=== PATIENT | female | born 1965 | race Two or more races ===

== ENCOUNTER 2016-09-03 06:41 | Day surgery (SDC) | payer OTHER ==
[2016-09-02 10:25] VITALS: BMI 29.9
[2016-09-03] MEDS ORDERED: LIDOCAINE HCL 1%, 10 MG/ML (20ML VIAL) ONE (07:21)
[2016-09-03] MEDS ORDERED: PROPOFOL 20 ML ONE (07:43)
[2016-09-03] MEDS ORDERED: MIDAZOLAM HCL 2 MG/2 ML SINGLE DOSE VIAL ONE (07:44)
[2016-09-03] MEDS ORDERED: SUCCINYLCHOLINE CHLORIDE 200 MG/10 ML VIAL ONE (07:44)
[2016-09-03] MEDS ORDERED: LIDOCAINE 1%/EPI 1:100000 (50 ML MULTI DOSE VIAL) ONE (08:00)
--- NOTE | 2016-09-03 08:11 | HP ---
History & Physical Update - History History: No Change - Physical Physical: No Change - Assessment Assessment: No Change - Plan Plan: No Change
[2016-09-03] MEDS ORDERED: CLINDAMYCIN PHOSPHATE 600 MG/4 ML VIAL ONE (08:22)
[2016-09-03] MEDS ORDERED: CLINDAMYCIN PHOSPHATE 900 MG/6 ML VIAL IVPB ONE (08:26)
[2016-09-03] MEDS ORDERED: DEXAMETHASONE SOD PHOSPHATE 4 MG/1 ML VIAL ONE (08:27)
[2016-09-03] MEDS ORDERED: KETOROLAC TROMETHAMINE 30 MG/1 ML VIAL ONE (08:27)
[2016-09-03] MEDS ORDERED: LIDOCAINE 1%/EPI 1:100000 (20 ML MULTI DOSE VIAL) INF ONE (08:35)
--- NOTE | 2016-09-03 09:06 | OP ---
Operative Note - Note: Operative Date: 09/03/16 Pre-Operative Diagnosis: FOREIGN BODY, LEFT AXILLA Operation: REMOVAL OF FOREIGN BODY, LEFT AXILLA Post-Operative Diagnosis: Same as Pre-op Surgeon: Neal Polanco Anesthesia: General (LMA) Specimens Removed: FOERIGN BODY Estimated Blood Loss (mls): 1 Operative Report Dictated: Yes
[2016-09-03] MEDS ORDERED: ONDANSETRON 4 MG/2 ML VIAL IVPUSH PRN (09:12)
[2016-09-03] MEDS ORDERED: oxyCODONE HCL 5 MG TABLET PO PRN (09:12)
[2016-09-03] MEDS ORDERED: LACTATED RINGERS SOLUTION 1,000 ML IV SCH (09:15)
[2016-09-03 09:37] VITALS: TEMP 98.5
[2016-09-03 11:26] VITALS: BP 100/53; PULSE 80
--- NOTE | 2016-09-04 08:59 | OP ---
DATE OF OPERATION: 09/03/2016 PROCEDURE: Removal of foreign body of the left axilla. PREOPERATIVE DIAGNOSIS: Foreign body of the left axilla. POSTOPERATIVE DIAGNOSIS: Foreign body of the left axilla. SURGEON: Neal Polanco MD ANESTHESIA: General by laryngeal mask airway. FINDINGS ON PROCEDURE: This is a 51-year-old female who was referred for removal of a 5 x 1 cm tubular foreign body of the left axilla, which was implanted several years ago. So, patient was scheduled for removal of the foreign body, and consent was obtained after discussing the risks, benefits, and alternatives of the procedure. DESCRIPTION OF PROCEDURE: Patient was brought to the operating room and placed in supine position. General anesthesia by laryngeal mask airway was administered. A shoulder roll was then placed on the left side. The left axilla was prepped and draped in the usual sterile fashion. Using lidocaine 1% with epinephrine, local anesthesia was administered to the proposed incision site. A 3 x 1 cm elliptical incision was made over the insertion site of the axilla of the foreign body using scalpel blade No. 15. The dissection was carried down to subcutaneous tissue. Further dissection using Bovie cautery was done until the foreign body together with the ellipse of skin was completely excised. Hemostasis was achieved using Bovie cautery. The wound was closed with interrupted Polysorb 3-0 suture for the dermis and continuous Biosyn 4-0 suture for the subcuticular layer. The wound closure was reinforced with Steri-Strips and covered with pressure dressing. The patient was successfully extubated and transferred to the post-anesthesia care unit in satisfactory condition. ESTIMATED BLOOD LOSS: About 1 mL. WOUND CLASS: Clean. The patient received 900 mg of clindamycin prior to the start of the procedure. Shira [id number]
--- NOTE | 2016-09-04 15:07 | PATH ---
Surgical Pathology Report Patient Name: TONG TODD [facility]. Rec. #: [id number] /Age/Gender: 1965 (Age: 51) / F Account: [id number] Location: [facility] Taken: 09/03/2016 Received: 09/03/2016 Reported: 09/04/2016 Physicians: Neal Polanco M.D. Specimen(s) Received FOREIGN BODY LEFT AXILLA Clinical History Foreign body left axilla Final Diagnosis FOREIGN BODY, LEFT AXILLA, EXCISION: PARTIALLY CALCIFIED FOREIGN MATERIAL WITH SURROUNDING FIBROUS CAPSULE WITH ACTIVE AND CHRONIC INFLAMMATION. Electronically Signed Gerson Benitez M.D. Gross Description Received in formalin labeled "foreign body left axilla" is a 4.5 x 2.0 x 1.0 cm irregular portion of soft tissue which is partially surfaced by a 1.8 x 0.4 cm isbell, elliptical, unremarkable portion of skin. Sectioning reveals a isbell, rubbery, rolled up foreign material surrounded by a calcified capsule. [employer] sections are submitted in one cassette, following decalcification. /09/03/201609/03/2016
== END 2016-09-03 11:15 | disposition home or self-care (01) ==
LOC: JASU-SURG 06:41
PROVIDERS: ATTEND Surgery
PROC: 0JCF0ZZ Extirpation of Matter from Left Upper Arm Subcutaneous Tissue and Fascia, Open Approach (ICD-10-PCS; principal; 2016-09-03 09:30)
DX: M79.5 Residual foreign body in soft tissue (principal)
CPT/HCPCS: 84703; 88304-TC; 94760

== ENCOUNTER 2024-10-01 14:56 | Emergency (ER) | payer OTHER ==
[2024-10-01 15:06] VITALS: BP 101/46; PULSE 90; RESP 20; TEMP 98.2; BMI 30.8
[2024-10-01] MEDS: SODIUM CHLORIDE 0.9% 500 ML INFUS.BAG IV ONE (16:14)
[2024-10-01] MEDS: ACETAMINOPHEN 1000 MG/100 ML BAG IVPB ONE (16:14)
[2024-10-01] MEDS ORDERED: ACETAMINOPHEN INJECTION 100 ML ONE (16:15)
[2024-10-01 16:16] LABS: ABSOLUTE IMMATURE GRANULOCYTES 0.03 x10^3/uL (0.0-0.031); BASOPHILS # 0.03 x10^3/uL (0.01-0.08); EOSINOPHIL % 1.5 % (0.7-5.8); HEMATOCRIT 38.4 % (34.1-44.9); HEMOGLOBIN 12.4 g/dL (11.2-15.7); MCHC 32.3 g/dl (32.2-35.5); MEAN CELL VOLUME 93.7 fl (79.4-94.8); MONOCYTE # 0.51 x10^3/uL (0.24-0.86); MONOCYTE % 7.6 % (4.7-12.5); PLATELET COUNT 329 x10^3/uL (182-369); RDW 13.7 % (12.3-16.6)
[2024-10-01 16:41] LABS: POTASSIUM 4.6 mmol/L (3.5-5.1)
[2024-10-01 16:43] LABS: CALCIUM 9.8 mg/dL (8.5-10.1)
[2024-10-01 16:44] LABS: ALBUMIN 3.5 g/dl (3.4-5.0); BLOOD UREA NITROGEN 18.9 mg/dL (7-18)
[2024-10-01 16:47] LABS: CREATININE 0.7 mg/dL (0.55-1.3)
[2024-10-01 16:48] LABS: BILIRUBIN,TOTAL 0.7 mg/dL (0.2-1); TOT PROT 6.9 g/dl (6.4-8.2)
[2024-10-01 17:06] LABS: URINE APPEARANCE CLEAR; URINE BILIRUBIN NEGATIVE (NEGATIVE); URINE COLOR YELLOW; URINE GLUCOSE (UA) NEGATIVE (NEGATIVE); URINE KETONE NEGATIVE (NEGATIVE); URINE LEUK ESTERASE NEGATIVE (NEGATIVE); URINE NITRITE NEGATIVE (NEGATIVE); URINE PROTEIN NEGATIVE (NEGATIVE); URINE UROBILINOGEN 0.2 mg/dL (0.2-1.0)
[2024-10-01 18:53] LABS: ACTIVATED PTT 31.7 SECONDS (25.2-36.5); INR 1.05 (0.83-1.09); PROTHROMBIN TIME (PATIENT) 11.5 SEC (9.7-13.0)
== END 2024-10-01 18:38 | disposition home or self-care (01) ==
LOC: JER 14:56
PROC: 3E033NZ Introduction of Analgesics, Hypnotics, Sedatives into Peripheral Vein, Percutaneous Approach (ICD-10-PCS; principal; 2024-10-01)
DX: K57.32 Diverticulitis of large intestine without perforation or abscess without bleeding (principal); R10.32 Left lower quadrant pain
CPT/HCPCS: 36415; 74177-TC; 80053; 81003; 83690; 84484; 85025; 85610; 85730; 86850; 86900; 86901; 87086; 93005; 93010; 99285-25; J0131; Q9967

== ENCOUNTER 2024-12-07 07:34 | Day surgery (SDC) | payer OTHER ==
[2024-12-06 14:01] VITALS: BMI 31.8
[2024-12-07 09:28] VITALS: TEMP 98.2
[2024-12-07 10:02] VITALS: RESP 16
[2024-12-07 10:04] VITALS: BP 103/62; PULSE 70
== END 2024-12-07 10:05 | disposition home or self-care (01) ==
LOC: JASU-ENDO 07:34
PROVIDERS: ATTEND Internal Medicine Gastroenterology
PROC: 0DJD8ZZ Inspection of Lower Intestinal Tract, Via Natural or Artificial Opening Endoscopic (ICD-10-PCS; principal; 2024-12-07 08:45)
DX: K57.90 Diverticulosis of intestine, part unspecified, without perforation or abscess without bleeding (principal)